=== PATIENT | female | born 1990 | race Hispanic/Latino ===

== ENCOUNTER 2019-05-09 19:30 | Inpatient (IN) | payer OTHER ==
--- NOTE | 2019-05-09 10:44 | PDOC.LDHP ---
Labor and Delivery H&P Chief complaint: scheduled induction HPI: 28 yo @ 40w4d admitted for IOL. Antepartum course complicated by hypothyroidism on synthroid, otherwise uncomplicated. She had majority of her care in [place] and transferred at 34 weeks. Current gestational age (weeks): 40 Due date: 05/05/19 Dating criteria: first trimester ultrasound Grav: 2 Para: 1 OB History Details: 1 tem Current complications: none Abnormal US findings: No Past Medical History: Hypothyroidism Current medications: pre- vitamins, other (synthroid 175 mcg) Previous surgical history: cholecystectomy, other (UE surgery) Allergies/Adverse Reactions: Allergies Allergy/AdvReac Type Severity Reaction Status Date / Time No Known Allergies Allergy Verified 05/09/19 23:56 Social history: none - Physical Exam Vital signs reviewed and normal: yes General: NAD Heart: RRR Lungs: nonlabored breathing Abdomen: gravid Extremeties: no edema FHT: category 1 (150s, mod shellie, +accels, no decels) [place] contractions every: q2 min s/p cytotec - Vaginal Exam cm dilated: 3 (cephalic, AROM clear ) Effacement: 50% Station: -2 - OB Labs Blood type: O RH: positive Antibody Screen: negative HIV: negative RPR: negative HEPSAg: negative 1 hour GCT: unknown 3 hour GTT: negative GBS: negative Urine drug screen: negative Rubella: immune - Assessment 40w4d IUP IOL Hypothyroidism - Plan Plan: admit to L&D, cervical ripening (s/p cytotec x 2; now s/p AROM), informed consent obtained, anesthesia consult for pain management
[2019-05-09] MEDS ORDERED: Diphenoxylate HCl/Atropine Tablet PO PRN (23:54)
[2019-05-09] MEDS ORDERED: Butorphanol Tartrate 1 MG/ML VIAL SLOW IVP PRN (23:54)
[2019-05-09] MEDS ORDERED: Promethazine HCl 25 MG/ML VIAL IM PRN (23:54)
[2019-05-09] MEDS ORDERED: Carboprost 250 MCG/ML AMP IM PRN (23:54)
[2019-05-09] MEDS ORDERED: Methylergonovine 0.2 MG/ML VIAL IM PRN (23:54)
[2019-05-09] MEDS ORDERED: Ondansetron PF 4 MG/2 ML Vial IVP PRN (23:54)
[2019-05-09] MEDS ORDERED: Lidocaine 1% (PF) 30 ML VIAL SC PRN (23:54)
[2019-05-09] MEDS ORDERED: hydrALAZINE 20 MG/ML VIAL SLOW IVP PRN (23:54)
[2019-05-09] MEDS ORDERED: NS / Oxytocin 40 units/1000ml 1,000 ML IV PRN (23:54)
[2019-05-09] MEDS ORDERED: Ibuprofen 800 MG TAB PO PRN (23:54)
[2019-05-09] MEDS ORDERED: HYDROcodone/Acetaminophen 5/325 mg Tablet PO PRN (23:54)
[2019-05-09] MEDS ORDERED: Acetaminophen 500 MG TAB PO PRN (23:54)
[2019-05-09] MEDS ORDERED: Misoprostol 200 MCG TAB PR PRN (23:54)
[2019-05-09 23:59] VITALS: BMI 37.0
[2019-05-10] MEDS: Lactated Ringer's 1,000 ML IV SCH ×3 (01:05→09:26)
[2019-05-10 01:48] LABS: Hemoglobin 12.8 g/dL (12.0-16.0); Mean Corpuscular Hemoglobin 30.2 pg (27.0-31.0); Mean Corpuscular Volume 86.3 fL (78.0-98.0); Mean Platelet Volume 9.4 fL (7.4-10.4); Platelet Count 215 thou/uL (130-400); RBC Distribution Width 12.9 % (11.5-14.5); Red Blood Cell (RBC) Count 4.23 mill/uL (4.20-5.40); White Blood Cell (WBC) Count 9.6 thou/uL (4.8-10.8)
[2019-05-10 02:26] LABS: HBSAg Index 0.17 S/CO (0-0.99); HIV (1/2) Antibody/Antigen Non-Reactive (NonReactive); HIV 1/2 INDEX 0.06 S/CO (<1.00); Hep B Surf Ag Non-Reactive S/CO (NonReactive)
[2019-05-10] MEDS: Misoprostol 100 MCG TAB VAG SCH ×6 (03:22→21:05)
[2019-05-10 04:49] LABS: Syphilis Antibody Nonreactive (Nonreactive); Syphilis Antibody Index 0.07 S/CO (<1.00 Non-Reactive)
[2019-05-10] MEDS ORDERED: FLU VACC QS2019-20(6MOS UP)/PF 60 MCG/0.5 ML SYRINGE IM ONE (09:00)
[2019-05-10] MEDS ORDERED: Fentanyl 4 mcg/Bup 0.1% Cadd 100 ML ONE ×2 (09:14→16:31)
[2019-05-10] MEDS ORDERED: diphenhydrAMINE 50 MG/ML VIAL IVP PRN (10:04)
[2019-05-10] MEDS ORDERED: Promethazine HCl 25 MG/ML VIAL IM PRN (10:04)
[2019-05-10] MEDS ORDERED: Naloxone HCl 0.4 mg/ml Vial IVP PRN ×2 (10:04)
[2019-05-10] MEDS ORDERED: Ondansetron PF 4 MG/2 ML Vial IVP PRN (10:04)
[2019-05-10] MEDS ORDERED: ePHEDrine/0.9% NaCl/PF SYRINGE 50 mg/10 ml SLOW IVP PRN (10:04)
[2019-05-10] MEDS ORDERED: Lactated Ringer's 500 ML IV PRN (10:04)
[2019-05-10] MEDS ORDERED: Acetaminophen 325 MG TAB PO PRN (10:04)
[2019-05-10] MEDS ORDERED: Communication Order-Pharmacy FS PRN (10:15)
--- NOTE | 2019-05-10 12:28 | PDOC.LDPN ---
Labor & Delivery Progress Note - Subjective Subjective: comfortable - Objective Vital signs reviewed and normal: yes General: NAD Uterine fundus: non tender Dilation: 6 Effacement: 90% Station: -1 FHT: category 2 (150s, mod shellie, +accels, small variable decels ) [place] contractions every: q1-2 min IUPC placed: yes - Assessment (1) 40 weeks gestation of Code(s): Z3A.40 - 40 WEEKS GESTATION OF Current Visit: Yes Status : Acute (2) Encounter for induction of labor Code(s): Z34.90 - ENCNTR FOR SUPRVSN OF NORMAL , UNSP, UNSP TRIMESTER Current Visit: Yes Status: Acute (3) Hypothyroidism Code(s): E03.9 - HYPOTHYROIDISM, UNSPECIFIED Current Visit: Yes Status: Acute Plan: continue plan of care -: IUPC placed as external monitor not adequately assessing ctx.
[2019-05-10] MEDS ORDERED: Lidocaine 1% (PF) 30 ML VIAL ONE (16:26)
[2019-05-10] MEDS ORDERED: NS / Oxytocin 40 units/1000ml 1,000 ML ONE (16:26)
--- NOTE | 2019-05-10 17:06 | PDOC.OPDEL ---
OB Operative/Delivery Note Delivery Dr/Surgeon: Astrid Pagan DO Pre-Delivery Diagnosis: elective induction Procedure/Post Delivery Dx: spontaneous vaginal delivery Weeks gestation: 40 Anesthesia: epidural - Findings A Sex: male - 1 min: 9 - 5 min: 9 - Additional Findings/Plan Placenta delivered: spontaneous Repaired Obstetrical Laceration: other (2nd degree and right perurethral) Estimated blood loss: QBL 35 cc, EBL 100 cc Compilations/Other Findings: ELENA position Nuchal x 1 Normal appearing placenta Post delivery plan: routine recovery
[2019-05-10] MEDS ORDERED: Milk Of Magnesia 30 ML UDCUP PO PRN (17:48)
[2019-05-10] MEDS ORDERED: diphenhydrAMINE 25 MG CAP PO PRN (17:48)
[2019-05-10] MEDS ORDERED: Lanolin Ointment 7 GM TUBE TOP PRN (17:48)
[2019-05-10] MEDS ORDERED: Bisacodyl 10 MG SUPP PR PRN (17:48)
[2019-05-10] MEDS ORDERED: NS / Oxytocin 40 units/1000ml 1,000 ML IV SCH (17:48)
[2019-05-10] MEDS ORDERED: Benzocaine-Menthol 82.5 ML CAN TOP PRN (17:48)
[2019-05-10] MEDS ORDERED: hydrALAZINE 20 MG/ML VIAL SLOW IVP PRN (17:48)
[2019-05-10] MEDS ORDERED: Preparation H Ointment 28 GM TUBE PR PRN (17:48)
[2019-05-10] MEDS ORDERED: Bupivacaine/Epinephrine 0.25% 30 ML VIAL ONE (18:00)
[2019-05-10] MEDS: NS w/ Oxytocin 10 units 500 ML IV SCH (19:59)
[2019-05-10] MEDS ORDERED: Sodium Chloride 0.9% 10 ML ONE (20:16)
[2019-05-10] MEDS: Ibuprofen 800 MG TAB PO SCH (21:27)
[2019-05-10] MEDS: Docusate Calcium (SURFAK) 240 MG CAP PO SCH (21:27)
[2019-05-11] MEDS: HYDROcodone/Acetaminophen 5/325 mg Tablet PO PRN ×2 (03:33→08:58)
[2019-05-11] MEDS: Ibuprofen 800 MG TAB PO SCH ×3 (04:30→22:04)
[2019-05-11] MEDS: Misoprostol 100 MCG TAB VAG SCH ×6 (04:31→22:05)
[2019-05-11 06:30] LABS: Hemoglobin 10.9 g/dL (12.0-16.0)
--- NOTE | 2019-05-11 07:51 | PDOC.PP ---
Post Progress Note Post Day #: 1 Subjective: No concerns. Breast feeding. Minimal pain and lochia. PO intake tolerated: yes Flatus: yes Ambulation: yes Vital Signs (12 hours) Temp Pulse Resp BP Pulse Ox 05/11/19 04:33 97.6 F 91 110/67 05/10/19 22:45 98.1 F 95 18 98/53 L 05/10/19 21:45 98.1 F 107 H 20 110/61 05/10/19 20:05 98.6 F 116 H 18 109/61 96 Weight Weight 196 lb - Physical Examination General: NAD Cardiovascular: RRR Respiratory: non-labored breathing Abdominal: no distention, appropriately TTP Fundus firm & at: below umbilicus Extremities: negative homans (B) Neurological: no gross focal deficits Psychiatric: A&Ox3, normal affect Result Diagrams: 05/11/19 06:14 Additional Labs: Post Labs Blood Type O POSITIVE 05/10/19 01:02 Hep Bs Antigen Non-Reactive S/CO (NonReactive) 05/10/19 01:02 (1) 40 weeks gestation of Code(s): Z3A.40 - 40 WEEKS GESTATION OF Status: Resolved (2) Encounter for induction of labor Code(s): Z34.90 - ENCNTR FOR SUPRVSN OF NORMAL , UNSP, UNSP TRIMESTER Status: Resolved (3) Hypothyroidism Code(s): E03.9 - HYPOTHYROIDISM, UNSPECIFIED Status: Acute (4) Normal vaginal delivery Code(s): O80 - ENCOUNTER FOR FULL-TERM UNCOMPLICATED DELIVERY Status: Acute - Assessment/Plan PPD1 VSSAF Continue PP care Plan for d/c this afternoon with infant.
[2019-05-11] MEDS: Docusate Calcium (SURFAK) 240 MG CAP PO SCH ×2 (08:25→22:05)
[2019-05-11] MEDS: Prenatal Vitamin 1 TAB PO SCH (08:25)
[2019-05-11] MEDS: Ferrous Sulfate 325 MG TAB PO SCH ×2 (09:06→18:40)
[2019-05-11] MEDS: NS w/ Oxytocin 10 units 500 ML IV SCH (09:06)
[2019-05-12] MEDS: Ibuprofen 800 MG TAB PO SCH ×2 (06:16→13:33)
[2019-05-12] MEDS: Misoprostol 100 MCG TAB VAG SCH ×3 (06:18→13:02)
[2019-05-12] MEDS: NS w/ Oxytocin 10 units 500 ML IV SCH (06:18)
[2019-05-12 08:09] VITALS: BP 108/64; TEMP 97.6
[2019-05-12] MEDS: Ferrous Sulfate 325 MG TAB PO SCH (08:15)
--- NOTE | 2019-05-12 08:17 | PDOC.PP ---
Post Progress Note Post Day #: 2 Subjective: No concerns. Breast and formula feeding, Minimal pain and lochia. D/C held due to infant receiving phototherapy. PO intake tolerated: yes Flatus: yes Ambulation: yes Vital Signs (12 hours) Temp Pulse Resp BP Pulse Ox 05/12/19 08:06 97.6 F 76 20 108/64 98 05/12/19 06:18 98.0 F 92 118/72 Weight Weight 196 lb - Physical Examination General: NAD Cardiovascular: RRR Respiratory: non-labored breathing Abdominal: no distention, appropriately TTP Fundus firm & at: below umbillicus Extremities: negative homans (B) Neurological: no gross focal deficits Psychiatric: A&Ox3, normal affect Result Diagrams: 05/11/19 06:14 Additional Labs: Post Labs Blood Type O POSITIVE 05/10/19 01:02 Hep Bs Antigen Non-Reactive S/CO (NonReactive) 05/10/19 01:02 (1) 40 weeks gestation of Code(s): Z3A.40 - 40 WEEKS GESTATION OF Status: Resolved (2) Encounter for induction of labor Code(s): Z34.90 - ENCNTR FOR SUPRVSN OF NORMAL , UNSP, UNSP TRIMESTER Status: Resolved (3) Hypothyroidism Code(s): E03.9 - HYPOTHYROIDISM, UNSPECIFIED Status: Acute (4) Normal vaginal delivery Code(s): O80 - ENCOUNTER FOR FULL-TERM UNCOMPLICATED DELIVERY Status: Acute - Assessment/Plan PPD2 VSSAF D/C home when ready
[2019-05-12] MEDS: Prenatal Vitamin 1 TAB PO SCH (08:18)
[2019-05-12] MEDS: Docusate Calcium (SURFAK) 240 MG CAP PO SCH (08:18)
== END 2019-05-12 15:40 | disposition home or self-care (01) | DRG 807 ==
LOC: L&D 23:19 → 3SW 05-10 20:02
PROVIDERS: ADMIT Obstetrics & Gynecology; ATTEND Obstetrics & Gynecology
PROC: 10E0XZZ Delivery of Products of Conception, External Approach (ICD-10-PCS; principal; 2019-05-09)
PROC: 0KQM0ZZ Repair Perineum Muscle, Open Approach (ICD-10-PCS; 2019-05-09)
PROC: 10907ZC Drainage of Amniotic Fluid, Therapeutic from Products of Conception, Via Natural or Artificial Opening (ICD-10-PCS; 2019-05-09)
PROC: 3E0P7VZ Introduction of Hormone into Female Reproductive, Via Natural or Artificial Opening (ICD-10-PCS; 2019-05-09)
PROC: 3E033VJ Introduction of Other Hormone into Peripheral Vein, Percutaneous Approach (ICD-10-PCS; 2019-05-09)
DX: O99.284 Endocrine, nutritional and metabolic diseases complicating childbirth (principal); Z37.0 Single live birth; O69.81X0 Labor and delivery complicated by cord around neck, without compression, not applicable or unspecified; E03.9 Hypothyroidism, unspecified; O70.1 Second degree perineal laceration during delivery; Z3A.40 40 weeks gestation of pregnancy; Z90.49 Acquired absence of other specified parts of digestive tract; Z79.899 Other long term (current) drug therapy
CPT/HCPCS: 36415; 51702; 85014; 85018; 85027; 86780; 86850; 86900; 86901; 87340; 87389; J2001